=== PATIENT | female | born 1970 | race Caucasian/White ===

== ENCOUNTER 2022-03-25 14:35 | Inpatient (IN) | payer OTHER ==
[~2022-03-25] VITALS: Ht 167.6 cm; Wt 62.1 kg
[2022-03-25 14:38] VITALS: BP 169/71
--- NOTE | 2022-03-25 14:55 | NUR ---
51 Y/O FEMALE BIB SELF C/O PALPITATIONS X2DAYS, DENIES ANY CHEST PAIN, STATED THEY HAVE DIZZINESS AT THE MOMENT/ HR AT BEDSIDE, WITH HR GOING DOWN TO THE 50S, STATED THEY HAVE SHORTNESS OF BREATH, RR 20. NKA PMH: HTN RX: AMLODIPINE
--- NOTE | 2022-03-25 14:59 | NUR ---
DR JONES AT BEDSIDE FOR EVAL
[2022-03-25] MEDS ORDERED: MECLIZINE 25 MG TAB PO ONE (15:10)
[2022-03-25] MEDS ORDERED: ACETAMINOPHEN EXTRA STRENGTH 500 MG TAB PO ONE (15:10)
[2022-03-25] MEDS ORDERED: ONDANSETRON 4 MG ODT PO ONE (15:10)
--- NOTE | 2022-03-25 16:19 | NUR ---
PT STATED DECREASE IN PALPITATIONS AND DIZZINESS, HR CONTINUES TO BE IN THE 50S
[2022-03-25 16:53] LABS: BASOPHILS % (AUTO) 0.3 % (0.0-2.0); EOSINOPHILS # (AUTO) 0.1 K/uL (0-0.4); HEMATOCRIT 36.6 % (36-48); HEMOGLOBIN 12.6 g/dL (12.0-16.0); LYMPHOCYTES # (AUTO) 2.3 K/uL (2.5-16.5); LYMPHOCYTES % (AUTO) 32.4 % (20.5-51.1); MEAN CORPUSCULAR HEMOGLOBIN 28 pg (27-31); MEAN CORPUSCULAR HGB CONC 34 g/dL (33-37); MEAN CORPUSCULAR VOLUME 82.2 fL (80-94); MONOCYTES # (AUTO) 0.5 K/uL (0.8-1.0); MONOCYTES % (AUTO) 7.9 % (1.7-9.3); NEUTROPHILS % (AUTO) 57.4 % (42.2-75.2); PLATELET COUNT (AUTO) 287 K/uL (140-450); RED BLOOD CELL COUNT(AUTO) 4.45 MIL/uL (4.20-5.40); RED CELL DISTRIBUTION WIDTH 14.4 % (11.6-13.7); WHITE BLOOD COUNT (AUTO) 6.9 K/uL (4.8-10.8)
--- NOTE | 2022-03-25 18:03 | NUR ---
DR JONES AT BEDSIDE
[2022-03-25 18:58] LABS: ALBUMIN 3.8 g/dL (3.4-5.0); ANION GAP 10.5 (8-16); ASPARTATE AMINOTRANSFERASE 28 U/L (15-37); CARBON DIOXIDE 31.6 mmol/L (21-32); CHLORIDE 102 mmol/L (98-107); CREATININE 0.6 mg/dL (0.6-1.3); GFR ARICAN-AMERICAN 134 mL/min (>90); GLUCOSE 118 mg/dL (74-106); POTASSIUM 3.1 mmol/L (3.5-5.1); SODIUM SERUM 141 mmol/L (136-145); TOTAL BILIRUBIN 0.2 mg/dL (0.0-1.0); UREA NITROGEN, BLOOD 9 mg/dL (7-18)
--- NOTE | 2022-03-25 19:11 | NUR ---
Pt report given to JAIDEN LUGO. Transfer of care at this time.
--- NOTE | 2022-03-25 19:24 | NUR ---
PT HR DROPPED INTO THE 30s PERIODICALLY, REPEAT ECG OBTAINED, ER MD AWARE OF PT CONDITION
--- NOTE | 2022-03-25 19:42 | NUR ---
ER MD AT BEDSIDE DISCUSSING RESULTS WITH PT.
[2022-03-25] MEDS ORDERED: AMLO2.5T PO (19:55)
--- NOTE | 2022-03-25 20:40 | NUR ---
PT WALKED TO AND FROM THE RESTROOM
--- NOTE | 2022-03-25 20:51 | NUR ---
ATTEMPED ABG. UNABLE TO OBTAIN. DR. DIAZ CANCELLED ABG.
--- NOTE | 2022-03-25 22:37 | NUR ---
Patient will be admitted to care of DR PRUETT. Admited to TELE. Will go to room 105A. Belongings list completed. Report to BRITTNEY BRICEÑO.
--- NOTE | 2022-03-25 22:45 | NUR ---
RECEIVED PATIENT FROM ER NURSE [facility], PATIENT IS ALERT,AMBULATORY. ADMITTED DUE TO PALPITATIONS AND BRADYCARDIA. IV IS INTACT ABD PATENT.NO DISTRESS NOTED
[2022-03-25] MEDS ORDERED: HYDROcodone/APAP 5/325 MG 1 TAB TAB PO PRN (22:50)
[2022-03-25] MEDS ORDERED: ONDANSETRON 4 MG/2 ML VIAL IVP PRN (22:50)
[2022-03-25] MEDS ORDERED: POTASSIUM CHLORIDE 10 MEQ TABER PO PRN (22:50)
[2022-03-25] MEDS ORDERED: MORPHINE SULFATE 4 MG/ML SYR IVP PRN (22:50)
[2022-03-25] MEDS ORDERED: KCL 20 MEQ/WATER INJ PREMIX 200 ML IV PRN (22:50)
[2022-03-25] MEDS ORDERED: MAGNESIUM OXIDE 400 MG TAB PO PRN (22:50)
[2022-03-25] MEDS ORDERED: MAG SULF 2000 MG/WATER PREMIX 50 ML IV PRN (22:50)
[2022-03-26] VITALS: BP 161/82
[2022-03-26] MEDS: ACETAMINOPHEN 325 MG TAB PO PRN ×3 (00:16→19:35)
[2022-03-26] MEDS: NACL 0.9% 1,000 ML IV SCH ×2 (01:44→12:03)
--- NOTE | 2022-03-26 02:00 | NUR ---
PATIENT ASLEEP, BREATHING EVEN AND UNLABORED,NO DISTRESS NOTED
[2022-03-26 04:00] VITALS: BP 158/74
--- NOTE | 2022-03-26 04:26 | NUR ---
GAVE KDUR 40 MEQ PO, POTASSIUM LEVEL AT 3.1
[2022-03-26 06:43] LABS: BASOPHILS % (AUTO) 0.1 % (0.0-2.0); EOSINOPHILS # (AUTO) 0.1 K/uL (0-0.4); EOSINOPHILS % (AUTO) 2.1 % (0.0-4.0); HEMOGLOBIN 11.9 g/dL (12.0-16.0); LYMPHOCYTES % (AUTO) 44.5 % (20.5-51.1); MEAN CORPUSCULAR HEMOGLOBIN 28 pg (27-31); MEAN CORPUSCULAR HGB CONC 34 g/dL (33-37); MEAN CORPUSCULAR VOLUME 82.1 fL (80-94); MONOCYTES # (AUTO) 0.5 K/uL (0.8-1.0); MONOCYTES % (AUTO) 7.1 % (1.7-9.3); NEUTROPHILS # (AUTO) 3.1 K/uL (1.8-7.7); NEUTROPHILS % (AUTO) 46.2 % (42.2-75.2); PLATELET COUNT (AUTO) 269 K/uL (140-450); RED BLOOD CELL COUNT(AUTO) 4.27 MIL/uL (4.20-5.40); RED CELL DISTRIBUTION WIDTH 14.4 % (11.6-13.7); WHITE BLOOD COUNT (AUTO) 6.8 K/uL (4.8-10.8)
[2022-03-26 07:03] LABS: ALBUMIN 3.2 g/dL (3.4-5.0); ANION GAP 7.5 (8-16); CARBON DIOXIDE 31.1 mmol/L (21-32); CREATININE 0.6 mg/dL (0.6-1.3); MAGNESIUM 1.9 mg/dL (1.8-2.4); POTASSIUM 3.6 mmol/L (3.5-5.1); TOTAL BILIRUBIN 0.1 mg/dL (0.0-1.0)
--- NOTE | 2022-03-26 07:10 | NUR ---
RECEIVED REPORT FROM [facility]NER NURSE.PT IS AWAKE, A&OX4. IV SITE ON LEFT AC, 20G, INFUSING AT 80ML/HR NS. CALL LIGHT WITHIN REACH, ALL SAFETY MEASURES DONE. DISCUSSED PLAN OF CARE.
[2022-03-26 08:00] VITALS: BP 166/76
--- NOTE | 2022-03-26 09:00 | NUR ---
DUE MED GIVEN WITH K-DUR, PER DR'S ORDER.
--- NOTE | 2022-03-26 11:33 | NUR ---
SAW PT WITH DR WATSON, WALKING AROUND THE HALLWAY. PT APPEARED TO BE NOT IN DISTRESS WHILE WALKING, AND AFTER WALKING DOWN THE HALLWAY.
[2022-03-26] MEDS ORDERED: amLODIPine 5 MG TAB PO SCH (11:45)
[2022-03-26 12:00] VITALS: BP 160/81
[2022-03-26] MEDS ORDERED: POTASSIUM CHLORIDE 10 MEQ TABER PO SCH (12:00)
--- NOTE | 2022-03-26 12:15 | NUR ---
PT COMPLAINED OF MILD HEADACHE, WITH A PAIN SCALE OF 3/10. GAVE TYLENOL TO PT. Addendum: 03/26/22 at 2133 by Edwige Vivas RN PLEASE DISREGARD PREVIOUS NOTE.
--- NOTE | 2022-03-26 12:23 | NUR ---
PT COMPLAINED OF MILD HEADACHE, TYLENOL GIVEN PER DR'S ORDER.
--- NOTE | 2022-03-26 12:27 | NUR ---
PT ASKING WHY IS SHE TAKING 5MG AMLODIPINE, SINCE AT HOME SHE'S TAKING 2.5MG. PT ALSO STATED THAT 5MG AMLODIPINE WILL MAKE HER LOWER EXTREMITIES SWELL. RELAYED TO DR. SAID THAT HE INCREASED THE AMLODIPINE DOSAGE, BECAUSE HE REMOVED THE OTHER BP MED. AND HER BP THIS MORNING IS HIGH. RELAYED 'S MESSAGE TO THE PT. PT VERBALIZED UNDERSTANDING.
[2022-03-26 16:00] VITALS: BP 158/85
--- NOTE | 2022-03-26 16:35 | NUR ---
PT BP 186/95. RECHECKED BP AGAIN. BP IS 173/886. INFORMED DR. WATSON. DR. WATSON ORDERED TO GIVE PT 10MG IV HYDRALAZINE.
[2022-03-26] MEDS: hydrALAZINE 20 MG/ML VIAL IVP PRN ×3 (17:06→18:48)
--- NOTE | 2022-03-26 17:10 | NUR ---
HYDRALAZINE IV GIVEN TO PT. WILL CHECK BP AGAIN IN 1 HR.
--- NOTE | 2022-03-26 18:00 | NUR ---
PT BP AT 159/80. PT ASKED FOR TYLENOL, FOR MILD HEADACHE. TYLENOL GIVEN.
[2022-03-26 18:56] VITALS: BP 159/90
--- NOTE | 2022-03-26 20:10 | NUR ---
DISCHARGED PT TO HOME. SON AT BEDSIDE WITH PT. V/S WERE STABLE. REMOVED ALL ID BAND. PT CHANGED TO HER OWN CLOTHINGS. IV REMOVED AND BLEEDING CONTROLLED. DISCHARGE INSTRUCTIONS GIVEN. PT VERBALIZED UNDERSTANDING. ALL PERSONAL BELONGINGS WERE TAKEN BY PT.WHEELED PT TO LOBBY.
[2022-03-26] MEDS ORDERED: HYDR-1098 PO (21:41)
== END 2022-03-26 20:10 | disposition home or self-care (01) | DRG 201 ==
LOC: MED 14:35 → MMU 21:14 → MTU 22:18
PROVIDERS: ADMIT Hospitalist; ATTEND Hospitalist
DX: R00.1 Bradycardia, unspecified (principal); D64.9 Anemia, unspecified; E87.6 Hypokalemia; I10 Essential (primary) hypertension; Z20.822 Contact with and (suspected) exposure to COVID-19; Z79.899 Other long term (current) drug therapy
CPT/HCPCS: 36415; 71045; 80053; 83735; 84484; 85025; 87081; 99285; J0360; J1644; J8597; Q0092; Q0162